=== PATIENT | female | born 1970 | race Caucasian/White ===

== ENCOUNTER 2019-02-21 12:54 | Emergency (ER) | payer MEDICAID ==
[2019-02-21] MEDS: Ketorolac 60 MG/2 ML SDV IM ONE (14:25)
[2019-02-21] MEDS: Ketorolac 30 MG/ML SDV ONE (14:25)
[2019-02-21] MEDS: Sodium Chloride 0.9% 50 ML SDV FLUSH ONE (15:00)
[2019-02-21] MEDS: Iodixanol 652 MG/ML 100 ML Bottle IV SCH (15:02)
[2019-02-21] MEDS ORDERED: Iodixanol 652 MG/ML 100 ML Bottle IV SCH (15:15)
--- NOTE | 2019-02-21 19:49 | CT ---
DATE OF SERVICE: 02/21/19 CLINICAL DATA: Abdominal pain ENHANCED ABDOMEN AND PELVIC CT: Multislice acquisition through the abdomen and pelvis with IV, but without oral contrast was performed. No priors. The lung bases are clear. The liver is normal size with homogeneous attenuation. No focal hepatic lesions. The gallbladder appears normal. No biliary duct dilatation. The spleen appears normal. The pancreas appears normal. The right and left adrenals appear normal. The right and left kidneys appear normal and enhance symmetrically. No hydronephrosis or hydroureter. The bladder is fluid-filled. It appears normal. There is a moderate amount of stool present throughout the colon. The appendix is not visualized. No evidence of appendicitis. There is a 13 mm fluid density lesion with peripheral enhancement located in the right ovary, most likely representing a complicated right ovarian cyst. There is mild diverticulosis of the sigmoid colon. No evidence of diverticulitis. No free air. No free fluid. No dilated loops of bowel. No aortic aneurysm or dissection. [id number] MTDD
--- NOTE | 2019-02-21 20:01 | ER ---
REASON FOR EMERGENCY ROOM REQUEST: Epigastric pain. HISTORY OF PRESENT ILLNESS: This 48-year-old woman [place], and she woke up this morning with some pain in epigastric area. She went to work and states that she felt "yucky" all morning. Her malaise continued and around noon or thereabout, she began to have some low substernal epigastric pain that radiated around to the sides bilaterally. She continues to feel her malaise and her symptoms continued, but she did not have any nausea or vomiting, and she has not had any urinary symptoms. She denies any shortness of breath. She does have a chronic history of problems with what she calls sciatica involving her left leg which is manifested by intermittent numbness, tingling and pain in her left leg. She also states that she has had for the past several days intermittent numbness off and on and tingling in both forearms and hands. It has tended to wax and wane. This is not associated with any back pain. PAST MEDICAL HISTORY: Significant for: 1. Hypertension. 2. 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 This was removed with laparoscopic assisted surgery. MEDICATIONS: Include amlodipine. ALLERGIES: TO SULFA. REVIEW OF SYSTEMS: Pertinent positives and negatives as listed in the HPI. PHYSICAL EXAMINATION: GENERAL: She is a pleasant woman who does not appear to be in acute distress. She is afebrile. Pulse of 88, blood pressure 147/92, respiratory rate 16, O2 sats 100% on room air. HEENT: Head is normocephalic. No scleral icterus is noted. No conjunctivitis. Oropharynx is normal. NECK: Supple. No adenopathy. No JVD. CHEST: Clear to auscultation with good air exchange and no wheezes, rhonchi, or rales. CARDIAC: Regular rate without murmur. No rub is heard. ABDOMEN: She is scaphoid and nondistended. She has minimal tenderness in the epigastric region to deep palpation, but there is no guarding or rebound. Laura sign is negative. No hepatosplenomegaly or other palpable masses are noted. EXTREMITIES: Normal pulses. No edema. No deformities. SKIN: No rashes. NEUROLOGIC: Cranial nerves 2 through 12 are intact. Deep tendon reflexes are normal and symmetrical bilaterally in the upper and lower extremities. Sensory examination in the upper and lower extremities is normal to crude touch. Straight leg raising her lower extremities was negative. SPINE: No tenderness to percussion or palpation. LABORATORY: Her CBC is normal with white count of 8.1 and hemoglobin of 15.0. Her CMP shows some mild hypokalemia with a serum potassium of 3.1. She has borderline elevated anion gap of 17.5. Her total bilirubin is borderline elevated at 1.3. Her liver enzymes are otherwise normal. Her troponin is normal, less than 0.017. FURTHER EMERGENCY ROOM COURSE: She did have the borderline elevation in her bilirubin and her symptoms combined with a history of having the gastric tumor removal, I went ahead with a CT scan with contrast which was normal. No significant intraabdominal findings were noted, and this was done with contrast. IMPRESSION: 1. Epigastric pain, seems to be largely resolved now. Etiology unclear. 2. Hypokalemia. 3. Hypertension. PLAN: I discussed the findings with her, and I also discussed these episodes of numbness and tingling that she has gotten in her hands for which I do not have an explanation at this juncture. It is my impression that she is going to have to follow up with a provider, and she should indeed have one established if she is going to be living here long-term. She is new to the area having moved here from [place], [place]. As far as her hypokalemia, we discussed oral replacement therapy versus diet rich in potassium, and she prefers the latter. We did discuss different foods such as bananas, apricot, etc that are high in potassium, and she prefers this to any oral supplements. All questions were answered. She understands and agrees. JACLYN/MARY /[id number]
== END 2019-02-21 16:33 | disposition home or self-care (01) ==
LOC: LB.ED 12:54
DX: R10.13 Epigastric pain (principal); E87.6 Hypokalemia; I10 Essential (primary) hypertension; Z88.2 Allergy status to sulfonamides
CPT/HCPCS: 36415; 74177; 80053; 84484; 85025; 93005; 96372; 99284-25; J1885

== ENCOUNTER 2021-04-08 02:15 | Emergency (ER) | payer MEDICAID ==
[2021-04-08] MEDS: Ketorolac 60 MG/2 ML SDV IM ONE (02:39)
[2021-04-08] MEDS ORDERED: Acetaminophen/HYDROcodone 325-5 MG Tab ONE (03:00)
== END 2021-04-08 03:15 | disposition home or self-care (01) ==
LOC: LB.ED 02:15
DX: S89.91XA Unspecified injury of right lower leg, initial encounter (principal); I10 Essential (primary) hypertension; Z88.2 Allergy status to sulfonamides; W00.0XXA Fall on same level due to ice and snow, initial encounter; Y99.0 Civilian activity done for income or pay
CPT/HCPCS: 73562-RT; 96372; 99283; A9270-GY; J1885

== ENCOUNTER 2024-03-16 04:35 | Emergency (ER) | payer MEDICAID ==
[2024-03-16] MEDS: Ondansetron 4 MG Tab.DIS PO ONE ×2 (05:34→08:15)
[2024-03-16 05:39] LABS: HEMATOCRIT 43.8 % (37.0-47.0); HEMOGLOBIN 15.1 g/dL (11.5-16.5); MEAN CORPUSCULAR HEMOGLOBIN 29.3 pg (27.0-32.0); MEAN CORPUSCULAR HGB CONC 34.5 g/dL (31.0-35.0); MEAN PLATELET VOLUME 9.2 fL (6.0-10.0); RED BLOOD CELL COUNT 5.16 M/uL (3.80-5.80); RED CELL DISTRIBUTION WIDTH 13.4 % (11.0-16.0); WHITE BLOOD CELL COUNT,WBC 9.2 K/uL (4.0-11.0)
[2024-03-16 05:49] LABS: ANION GAP 13.2 mmol/L (5.0-15.0); BUN/CREATININE RATIO 22.7 (6-25); CALCIUM 8.1 mg/dL (8.5-10.1); CARBON DIOXIDE,CO2 28.9 mmol/L (21.0-32.0); CREATININE 0.75 mg/dL (0.55-1.02); EST CRCL DRUG DOSING (CG) 74.91 mL/min; MAGNESIUM 1.8 mg/dL (1.8-2.4); POTASSIUM,K 3.1 mmol/L (3.5-5.1)
[2024-03-16] MEDS ORDERED: Sodium Chloride 0.9% 10 ML Syringe FLUSH PRN (05:53)
[2024-03-16] MEDS: Sodium Chloride 0.9% 1,000 ML IV SCH (06:00)
[2024-03-16] MEDS: Ketorolac 15 MG/ML SDV IVPUSH ONE (06:01)
[2024-03-16] MEDS: Potassium Chloride Riders 10 MEQ in Premix Bag 1 BAG IV ONE ×2 (06:03→08:20)
[2024-03-16] MEDS: Potassium Chloride Riders 50 ML ONE (06:06)
[2024-03-16] MEDS: Potassium Chloride 20 MEQ Tab.ER PO ONE (06:08)
[2024-03-16] MEDS: Prochlorperazine 10 MG/2 ML SDV IVPUSH ONE (06:41)
[2024-03-16 07:52] LABS: ANION GAP 10.9 mmol/L (5.0-15.0); BUN/CREATININE RATIO 24.2 (6-25); CALCIUM 7.5 mg/dL (8.5-10.1); CREATININE 0.66 mg/dL (0.55-1.02); EST CRCL DRUG DOSING (CG) 85.12 mL/min
[2024-03-16 07:55] LABS: POTASSIUM,K 2.9 mmol/L (3.5-5.1)
[2024-03-16] MEDS: Calcium Gluconate 10% 1 GM/10 ML SDV IV SCH (08:03)
[2024-03-16 10:37] LABS: ANION GAP 11.7 mmol/L (5.0-15.0); BUN/CREATININE RATIO 20.5 (6-25); CARBON DIOXIDE,CO2 28.8 mmol/L (21.0-32.0); CREATININE 0.73 mg/dL (0.55-1.02); EST CRCL DRUG DOSING (CG) 76.96 mL/min; POTASSIUM,K 3.5 mmol/L (3.5-5.1)
== END 2024-03-16 11:32 | disposition home or self-care (01) ==
LOC: LB.ED 04:35
DX: E87.6 Hypokalemia (principal); I10 Essential (primary) hypertension; K21.9 Gastro-esophageal reflux disease without esophagitis; Z79.899 Other long term (current) drug therapy; Z88.2 Allergy status to sulfonamides
CPT/HCPCS: 36415; 70450; 80048; 83735; 84484; 85027; 93005; 96365; 96366; 96375; 99285-25; A9270-GY; J0612; J0780; J1885; J3480; J7030; Q0162